=== PATIENT | female | born 1995 | race Caucasian/White ===

== ENCOUNTER 2019-09-24 12:36 | Emergency (ER) | payer BC, OTHER ==
[2019-09-24] MEDS ORDERED: Diazepam INJ* 5 MG/ML 10 ML VIAL (50 MG TOTAL) IV ONE (12:55)
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
[2019-09-24] MEDS ORDERED: Ondansetron INJ* 2 MG/ML VIAL IV ONE (13:04)
--- OUTSIDE RECORDS SUMMARY | 2019-09-24 13:46 | XMS REPORT | Continuity of Care Document ---
:1995 External Reference #:[id number] Author Name Gail Roth CNM Address [address] [place] [address] Care Team Providers Name Role Phone Les Sierra - Physician Pharmaceutical Scientist Care Team Information [employer] [phone] Problems Active Problems Provider Date Primigravida supplier quality engineer Ultrasound Onset: 07/24/2014 Amenorrhea Lowell Jimenes MD Onset: 08/07/2018 Nausea and vomiting Lowell Jimenes MD Onset: 08/07/2018 Encounter for supervision of other normal Lowell Jimenes MD Onset: 2017 , second trimester Social History Type Date Description Comments Sex Unknown Cigarette Use Quit - Age 22 ETOH Use Occasionally consumes alcohol Recreational Drug Use Denies Drug Use Tobacco Use Start: Unknown Patient has never smoked Smoking Status Reviewed: 08/02/19 Patient has never smoked Tattoo/Piercing Tattoo 3- left foot and both arms Tattoo/Piercing Pierced ears Tattoo/Piercing Pierced Nasal Area ELLIE: 03/25/2019 Estimated Date of Based on Final ELLIE Delivery ELLIE: 11/29/2014 Estimated Date of Based on Final ELLIE Delivery Allergies, Adverse Reactions, Alerts Description No Known Drug Allergies Medications Active Medications SIG Qnty Indications Ordering Provider Date Mirena (52 MG) Gail Roth, 06/06/2019 20mcg/24HR IUD CNM History Medications Kath take 1 tablet 168tabs Gail Roth, 05/02/2019 - 0.35mg daily CNM 06/06/2019 Tablets 1 by mouth every 90tabs Melani Arboleda M.D. 04/09/2019 - Complete day or whatever 07/08/2019 vit 14-0.4mg Tablets compatable with insurance. Immunizations Description No Information Available Vital Signs Date Vital Result Comment 2019 3:59pm Weight 256.00 lb Weight 116.122 kg BMI (Body Mass Index) 41.3 kg/m2 BP Systolic 108 mmHg BP Diastolic 70 mmHg Height 66 inches 5'6" Height in cm's 167.6 cm Last Menstrual Period [id number] 2 Parity 2 06/06/2019 9:17am Weight 254.00 lb Weight 115.214 kg BMI (Body Mass Index) 41.0 kg/m2 BP Systolic 106 mmHg BP Diastolic 60 mmHg Height 66 inches 5'6" Height in cm's 167.6 cm 2 Parity 2 Results Test Date Facility Test Result H/L Range Note GC Chlamydia Amp 06/06/2019 [facility] Chlamydia NEGATIVE Negative 1 Assay [phone] GC NEGATIVE Negative 2 Vaginal Panel 06/06/2019 [facility] Bacterial NEGATIVE Negative PCR [phone] Vaginosis Mary Species NEGATIVE Negative 3 Mary Krusei NEGATIVE Negative Mary [place] NEGATIVE Negative Trichomonas NEGATIVE Negative 4 Group B Strep 02/24/2019 [facility] Culture CULTURE OBSERVAT 5 Culture 17 [facility]. <SEE NOTE> [place] [id number] [phone] Kleihauer-Hemoglob- 02/19/2019 [facility] Cells NO CELLS S [address] <SEE NOTE> [place] [id number] [phone] Fet/Mat Ratio 0.0000 Ratio Chart /Maternal <SEE NOTE> 7 HGB Note Vails of Rhogam <SEE NOTE> 8 1 A negative result does not rule out Chlamydia trachomatis infection because results are dependent on adequate specimen collection, absence of inhibitors, and sufficient DNA to be detected. Methodology: Nucleic Acid Amplification (ISIDORO) 2 A negative result does not rule out Neisseria gonorrhoeae infection because results are dependent on adequate specimen collection, absence of inhibitors, and sufficient DNA to be detected. 3 Mary species includes Mary albicans and/or Mary tropicalis and/or Mary parapsilosis and/or Mary dubliniensis. 4 Methodology: Polymerase Chain Reaction (PCR) 5 CULTURE OBSERVATIONS CULTURE OBSERVATIONS Streptococcus agalactiae (Group B) was NOT isolated 6 NO CELLS SEEN 7 /Maternal RBC Vials of RBC Ratio Approx. Volume Rhogam 0.0000-0.0045 <=15 ml 1 0.0046-0.0090 1 5-30 ml 2 0.0091-0.0135 30-40 ml 3 0.0136-0.0180 40-60 ml 4 0.0181-0.0225 60-75 ml 5 8 Vails of Rhogam listed are the recommended number of 1,500-IU Rh(D) immue globulin to adequately treat Rh NEGATIVE patients prophylacticly. Procedures Date Code Description Status 06/06/2019 89547 IUD Insertion Of Intrauterine Device Completed 04/01/2019 38252 Vaginal Delivery,Antepartum And Care Completed 04/01/2019 50764 Vaginal Delivery,Antepartum And Care Completed 04/01/2019 25839 Repair Complex Secondary Closure Of Wound Or Dehiscence Completed 04/01/2019 96218 Repair Complex Secondary Closure Of Wound Or Dehiscence Completed 03/28/2019 60380 Ultrasound Uterus Follow Up-Reevaluation Completed Size By 03/28/2019 32194 Non-Stress Test Completed 03/03/2019 81139 Ultrasound Uterus Follow Up-Reevaluation Completed Size By Medical Devices Description No Information Available Encounters Type Date Location Provider Dx Diagnosis Office Visit 02/19/2019 [facility] Carlene Garcia Z03.72 Encounter for 6:49p And Gynecology ROD Lindsey suspected placental problem ruled out W10.1xxA Fall (on)(from) sidewalk curb, initial encounter Y93.9 Activity, unspecified Z3A.35 35 weeks gestation of Assessments Date Code Description Provider 2019 Z30.431 Encounter for routine checking of Gail Roth CNM intrauterine contraceptive device 06/06/2019 Z32.02 Encounter for test, result Gail Casas CNM negative 06/06/2019 Z30.430 Encounter for insertion of Gail Roth CNM intrauterine contraceptive device 05/01/2019 Z39.2 Encounter for routine Gail Roth CNM follow-up 04/09/2019 O48.0 Post-term Melani Arboleda M.D. 04/09/2019 Z3A.40 40 weeks gestation of Melani Arboleda M.D. 04/09/2019 O72.0 Third-stage hemorrhage Melani Arboleda M.D. 04/01/2019 O72.0 Third-stage hemorrhage Melani Arboleda M.D. 04/01/2019 O80 Encounter for full-term Gail RothROD uncomplicated delivery 04/01/2019 O72.0 Third-stage hemorrhage Gail RothROD 04/01/2019 O70.0 First degree perineal laceration Gailtom HouserROD [place] during delivery 04/01/2019 Z3A.41 41 weeks gestation of Gail RothROD 04/01/2019 Z37.0 Single live Gail RothROD 03/28/2019 O48.0 Post-term Yeni Meeks, 03/28/2019 Z3A.40 40 weeks gestation of Yeni Meeks 03/28/2019 O48.0 Post-term supplier quality engineer Ultrasound 03/28/2019 Z3A.40 40 weeks gestation of supplier quality engineer Ultrasound 03/25/2019 Z3A.40 40 weeks gestation of Gail RothROD 03/25/2019 Z34.83 Encounter for suprvsn of normal Gailtom RothROD , third trimester 03/17/2019 Z34.83 Encounter for suprvsn of normal Gailtom RothROD , third trimester 03/17/2019 Z3A.38 38 weeks gestation of Gail RothROD 03/10/2019 Z34.83 Encounter for supervision of other Gail Rtoh CNM normal , third t 03/10/2019 Z3A.37 37 weeks gestation of Gail RothROD 03/03/2019 O41.03x1 Oligohydramnios, third trimester, supplier quality engineer Ultrasound fetus 1 03/03/2019 Z3A.36 36 weeks gestation of Caity Allen MD 03/03/2019 Z3A.36 36 weeks gestation of supplier quality engineer Ultrasound 02/24/2019 Z34.83 Encounter for suprvsn of normal Leonora Ozuna CNM , third trimester 02/19/2019 Z03.72 Encounter for suspected placental SANTY Toribio problem ruled out 02/19/2019 W10.1xxA Fall (on)(from) sidewalk curb, Carlene Lindsey CNM initial encounter 02/19/2019 Y93.9 Activity, unspecified Carlene Lindsey CNM 02/19/2019 Z3A.35 35 weeks gestation of Carlene Lindsey CNM 02/10/2019 Z34.83 Encounter for suprvsn of normal Gail Roth CNM , third trimester 02/10/2019 Z3A.33 33 weeks gestation of Gail Roth CNM Plan of Treatment 2019 - Gail Roth CNMZ30.431 Encounter for routine checking of intrauterine contraceptive deviceComments:Pt satisfied w string length. Reviewed s/s when to call office. No other questions/concerns. RTO forannual or prn Functional Status Functional Condition Comment Date Status Glasses Active Mental Status Description No Information Available Referrals Description No Information Available
[2019-09-24 14:03] LABS: ABS Eosinophils 0.2 10^3/ul (0-0.6); ABS Lymphocytes 1.7 10^3/ul (1.0-4.8); ABS Monocytes 0.7 10^3/ul (0-0.8); ABS Neutrophils 7.1 10^3/ul (1.5-7.7); Eosinophil % 1.8 %; Hematocrit 39 % (35-47); Hemoglobin 12.9 g/dL (12.0-16.0); Lymphocyte % 18.1 %; Mean Corpuscular HGB Conc 33 g/dL (31-36); Mean Corpuscular Hemoglobin 26 pg (27-31); Mean Corpuscular Volume 79 fL (80-97); Mean Platelet Volume 7.7 fL (7.4-10.4); Platelet Count 385 10^3/uL (150-450); Red Blood Count 4.93 10^6 /uL (3.70-4.87); Red Cell Distribution Width 14 % (10-15); White Blood Count 9.7 10^3/uL (3.5-10.8)
[2019-09-24 14:16] LABS: INR 1.06 (0.82-1.09)
[2019-09-24 14:21] LABS: ALT 11 U/L (7-52); AST 14 U/L (13-39); Albumin 4.1 g/dL (3.2-5.2); Albumin/Globulin Ratio 1.2 (1-3); Alkaline Phosphatase 79 U/L (34-104); Anion Gap 7 mmol/L (2-11); BUN/Creatinine Ratio 12.6 (8-20); Blood Urea Nitrogen 11 mg/dL (6-24); CO2 Carbon Dioxide 25 mmol/L (22-32); Calcium 9.1 mg/dL (8.6-10.3); Chloride 105 mmol/L (101-111); EGFR African American 95.2 (>60); EGFR Non-African American 78.7 (>60); Globulin 3.3 g/dL (2-4); Glucose 80 mg/dL (70-100); Potassium 3.5 mmol/L (3.5-5.0); Sodium 137 mmol/L (135-145); Total Protein 7.4 g/dL (6.4-8.9)
[2019-09-24 14:27] LABS: HCG Pregnancy < 0.60 mIU/mL
[2019-09-24] MEDS ORDERED: Iohexol 300* (CONTRAST) 10 ML SDV IV ONE (14:30)
== END 2019-09-24 15:35 | disposition home or self-care (01) ==
LOC: EDBD → EDUNIT# → ED 12:36
DX: M25.512 Pain in left shoulder (principal); R07.89 Other chest pain; R06.02 Shortness of breath; V43.52XA Car driver injured in collision with other type car in traffic accident, initial encounter; Y92.410 Unspecified street and highway as the place of occurrence of the external cause
CPT/HCPCS: 36415; 71260; 72131; 80053; 83605; 84484; 84702; 85025; 85610; 96374; 96375; 99283; J2405; J3360; Q9967

== ENCOUNTER 2019-10-19 12:31 | Emergency (ER) | payer BC, OTHER ==
[2019-10-19 13:33] VITALS: BP 125/58
--- NOTE | 2019-10-19 13:41 | UC ---
Respiratory Complaint HPI - HPI Summary HPI Summary: Pt presents with c/o cough, nasal congestion, loss of voice, chest congestion X 2 months. Pt states s/sx have worsened over the last few days - History of Current Complaint Chief Complaint: UCRespiratory Stated Complaint: CONGESTION COUGH Time Seen by Provider: 10/19/19 13:34 Hx Obtained From: Patient ?: No Onset/Duration: Gradual Onset, Lasting Weeks - 8 weeks, Still Present, Worse Since - onset Timing: Constant Severity Initially: Mild Severity Currently: Severe Pain Intensity: 0 Character: Cough: Nonproductive Aggravating Factors: Exertion, Deep Breaths, Recumbent Position Alleviating Factors: Nothing Associated Signs And Symptoms: Positive: Chills, Wheezing, URI, Nasal Congestion , Hoarseness - Risk Factors Pulmonary Embolism Risk Factors: Negative Cardiac Risk Factors: Negative Pseudomonas Risk Factors: Negative Tuberculosis Risk Factors: Negative - Allergies/Home Medications Allergies/Adverse Reactions: Allergies Allergy/AdvReac Type Severity Reaction Status Date / Time No Known Allergies Allergy Unverified 10/19/19 13:31 PMH/Surg Hx/FS Hx/Imm Hx Previously Healthy: Yes - Surgical History Surgical History: None - Family History Known Family History: Positive: Cardiac Disease - Social History Occupation: Employed Full-time Lives: With Family Alcohol Use: Occasionally Substance Use Type: None Smoking Status (MU): Never Smoked Tobacco Have You Smoked in the Last Year: No Review of Systems All Other Systems Reviewed And Are Negative: Yes Constitutional: Positive: Chills, Fatigue Skin: Positive: Negative Eyes: Positive: Negative ENT: Positive: Sore Throat, Nasal Discharge, Sinus Congestion Respiratory: Positive: Cough Cardiovascular: Positive: Negative Gastrointestinal: Positive: Negative Genitourinary: Positive: Negative Motor: Positive: Negative Neurovascular: Positive: Negative Musculoskeletal: Positive: Myalgia Neurological: Positive: Headache Psychological: Positive: Negative Is Patient Immunocompromised?: No Physical Exam Triage Information Reviewed: Yes Appearance: Ill-Appearing Vital Signs: Initial Vital Signs Temp 97.8 F 10/19/19 13:28 Pulse 79 10/19/19 13:28 Resp 15 10/19/19 13:28 BP 125/58 10/19/19 13:28 Pulse Ox 99 10/19/19 13:28 Vital Signs Reviewed: Yes Eye Exam: Normal ENT: Positive: Pharyngeal erythema, Nasal congestion, Hoarse voice Dental Exam: Normal Neck exam: Normal Respiratory: Positive: Decreased breath sounds, Wheezing Cardiovascular Exam: Normal Musculoskeletal Exam: Normal Neurological Exam: Normal Psychological Exam: Normal Skin Exam: Normal Respiratory Course/Dx - Course Course Of Treatment: I discussed viral vs bacterial and pt requested antibiotics - Differential Dx/Diagnosis Differential Diagnosis/HQI/PQRI: Bronchitis, Lower Resp Infection Provider Diagnosis: Bronchitis Discharge ED - Sign-Out/Discharge Documenting (check all that apply): Patient Departure All imaging exams completed and their final reports reviewed: No Studies - Discharge Plan Condition: Stable Disposition: HOME Prescriptions: Azithromycin TAB* [Zithromax TAB (Z-LEANDRO) 250 mg #6 tabs] 2 tab PO .TODAY, THEN 1 DAILY #1 leandro Benzonatate CAP* [Tessalon 100 MG CAP*] 100 mg PO Q8H PRN #30 cap PRN Reason: Cough Cetirizine* [ZyrTEC 10 MG TAB*] 10 mg PO DAILY #10 tab Guaifenesin/Pseudoephedrne HCl [Mucinex D ER 600-60 mg Tablet] 1 each PO Q12H # 14 tab.er.12h predniSONE TAB* [Deltasone 20 MG TAB*] 60 mg PO DAILY #12 tab Patient Education Materials: Acute Bronchitis (ED) Referrals: Les Sierra PA [Primary Care Provider] - If Needed - Billing Disposition and Condition Condition: STABLE Disposition: Home
== END 2019-10-19 13:49 | disposition home or self-care (01) ==
LOC: UCCORT 12:31
DX: J40 Bronchitis, not specified as acute or chronic (principal); J02.9 Acute pharyngitis, unspecified; J34.89 Other specified disorders of nose and nasal sinuses; R51 Headache; M79.10 Myalgia, unspecified site
CPT/HCPCS: 99212; G0463